=== PATIENT | female | born 1995 | race Caucasian/White ===

== ENCOUNTER 2018-08-08 16:38 | Emergency (ER) | payer BC | END 2018-08-08 19:15 | disposition home or self-care (01) | LOC: FTE 19:15 | DX: R07.89 Other chest pain (principal) | CPT/HCPCS: 71046; 93005; 99284-25 ==

== ENCOUNTER 2018-08-14 17:52 | Emergency (ER) | payer BC ==
[2018-08-14] MEDS: ONDANSETRON (ODT) 4 MG TAB ODT (18:39)
[2018-08-14] MEDS: ACETAMINOPHEN 325 MG TAB PO (18:39)
== END 2018-08-14 20:05 | disposition home or self-care (01) ==
LOC: FTE 17:52
DX: S01.01XA Laceration without foreign body of scalp, initial encounter (principal); W01.0XXA Fall on same level from slipping, tripping and stumbling without subsequent striking against object, initial encounter; Y92.9 Unspecified place or not applicable
CPT/HCPCS: 70450; 99284-25

== ENCOUNTER 2018-08-18 14:05 | Emergency (ER) | payer BC ==
[2018-08-18] MEDS: KETOROLAC 15 MG INJ IM (14:58)
[2018-08-18] MEDS: ONDANSETRON (ODT) 4 MG TAB ODT (16:08)
== END 2018-08-18 16:13 | disposition home or self-care (01) ==
LOC: FTE 16:13
DX: R51 Headache (principal); M54.5 Low back pain
CPT/HCPCS: 72040; 72100; 81025; 96372; 99284-25